=== PATIENT | female | born 1990 | race African-American/Black ===

== ENCOUNTER 2018-08-08 23:46 | Emergency (ER) | payer OTHER ==
[~2018-08-08] VITALS: Ht 157.5 cm; Wt 92.7 kg
[2018-08-08 23:56] VITALS: BP 111/67
== END 2018-08-09 01:30 | disposition left against medical advice (07) ==
LOC: EMS 23:49
DX: R21 Rash and other nonspecific skin eruption (principal); Z53.21 Procedure and treatment not carried out due to patient leaving prior to being seen by health care provider